=== PATIENT | female | born 1985 | race Caucasian/White ===

== ENCOUNTER 2022-07-13 12:23 | Emergency (ER) | payer BC, SELFPAY ==
--- NOTE | ~2022-07-13 | XR_ITS ---
EXAMINATION: XR toe 5th RT min 2V DATE: 07/13/2022 12:56 INDICATION: Right fifth toe injury. TECHNIQUE: 3 views of right fifth toe were obtained. COMPARISON: None. FINDINGS: There is an oblique fracture of diaphysis of fifth proximal phalanx. The distal fracture fr agment demonstrates 1 mm lateral displacement, dorsal lateral angulation, and internal rotation. Join t spaces are normal. IMPRESSION: 1. Oblique fracture of diaphysis of fifth proximal phalanx. Reviewed, dictated and finalized at location A.
[2022-07-13 12:32] VITALS: BP 104/62; PULSE 79; RESP 16; TEMP 36.7; O2SAT 99
--- NOTE | 2022-07-13 12:57 | ED.LOWEXIN ---
HPI - Extremity Injury (Lower) General Chief Complaint: Extremity Injury, Lower Stated Complaint: pinky toe on right foot Time Seen by Provider: 07/13/22 12:57 Source: patient, RN notes reviewed and old records reviewed Mode of arrival: ambulatory Limitations: no limitations History of Present Illness HPI Narrative: 37 year old female presents to [facility] care with complaints of stubbing her right 5th toe this morning at home. Patient has angulation of her right 5th toe with pain on any movement, denies any tingling or numbness to her right foot or toes, nail beds have brisk capillary refill complaint: other (5th toe right foot injury) Onset (ago): hour(s) (this morning) Type of Injury: other (stubbed toe) Place: home Severity scale (1-10): 5 Exacerbating factors: weight bearing and movement Treatments prior to arrival: other (none) Related Data Allergies Allergy/AdvReac Type Severity Reaction Status Date / Time No Known Allergies Allergy Verified 07/13/22 12:35 Review of Systems Review of Systems: CONSTITUTIONAL: Denies fever, chills, or sweats. EYES: Denies visual changes, redness, or discharge. ENT: Denies rhinorrhea, congestion, sore throat, or otalgia. CARDIOVASCULAR: Denies chest pain, palpitations, or edema. RESPIRATORY: Denies cough or dyspnea. GASTROINTESTINAL: Denies abdominal pain, nausea, vomiting, or diarrhea. GENITOURINARY: Denies dysuria or hematuria. SKIN: Denies rash or itching. MUSCULOSKELETAL: Denies back pain,positive for 5th toe right foot injury with obvious deformity, or myalgia. NEUROLOGIC: Denies headache, numbness, or weakness. PSYCHIATRIC: Denies anxiety or depression. All systems reviewed & are unremarkable except as noted in HPI and below PMFSH Social History Social History Living arrangements: with family Gender identity (if verbalized by the patient): Female Comments At time of signature, agree with nursing past medical, surgical, social and family history. There is no relevant family history pertinent to the presenting complaint Exam Narrative: GENERAL: Well-appearing, well-nourished, and in no acute distress. HEAD: Normocephalic, atraumatic. EYES: PERRLA and EOMI. ENT: Nares clear, no rhinorrhea or epistaxis. Mucous membranes moist.TM's normal throat pink without swelling NECK: Supple.no lymphadenopathy CHEST: Clear to auscultation. No respiratory distress.SAO2 99% on room air HEART: Regular rate and rhythm. No murmur heard. Normal peripheral pulses. ABDOMEN: Soft, nontender, nondistended, normal active bowel sounds. EXTREMITIES: Normal range of motion. No edema.Injury to right 5th toe with obvious deformity,pain with movement, nail bed has brisk capillary refill strong right pedal pulse. SKIN: Warm, dry, no rash. NEURO: No focal deficits. Alert and oriented x3. Course Course Emergency Course: Patient is aware of diagnosis, understands and agrees to treatment plan.? Anticipatory guidance given.? Patient agrees to follow-up as directed and is aware of reasons to seek care at the emergency department. Portions of this record may have been created with voice recognition software Level of Care: Express Care Visit Vital Signs Vital signs: Vital Signs Temperature 36.7 C 07/13/22 12:32 Pulse Rate 79 07/13/22 12:32 Respiratory Rate 16 07/13/22 12:32 Blood Pressure 104/62 07/13/22 12:32 Pulse Oximetry 99 07/13/22 12:32 Oxygen Delivery Room Air 07/13/22 12:32 Temperature 36.7 C 07/13/22 12:32 Pulse Rate 79 07/13/22 12:32 Respiratory Rate 16 07/13/22 12:32 Blood Pressure 104/62 07/13/22 12:32 Pulse Oximetry 99 07/13/22 12:32 Oxygen Delivery Room Air 07/13/22 12:32 Reviewed MDM - Extremity Injury (Lower) Differential Diagnosis Differential diagnosis: Likely fracture of toe (deformity right 5th toe, pain right 5th toe.) Medical Records Attestation: I reviewed the patient's medical r
== END 2022-07-13 13:37 | disposition home or self-care (01) ==
PROVIDERS: Emergency Provider Registered Nurse; PCP Emergency Medicine
DX: S92.511A Displaced fracture of proximal phalanx of right lesser toe(s), initial encounter for closed fracture (principal); X58.XXXA Exposure to other specified factors, initial encounter
CPT/HCPCS: 73660; 99214; G0463